=== PATIENT | male | born 1955 | race Caucasian/White ===

== ENCOUNTER 2023-07-24 19:46 | Emergency (ER) | payer MEDICARE, OTHER, SELFPAY ==
[2023-07-24 19:48] VITALS: BP 124/94
--- NOTE | 2023-07-24 20:03 | ED.GENMED ---
History of Present Illness
General
Chief Complaint: Cough
Source: patient
Exam Limitations: none
Time Seen by Provider: 07/24/23 19:52
Travel History
Have you had any contact with someone who has COVID-19?: No
Do you have any symptoms of coronavirus? Fever > 100 degrees, chills, cough, shortness of breath, sore throat, loss of taste or smell, muscle aches, or headache?: No
History of Present Illness
History of Present Illness:
This is a 67 year old male that comes in with c/o fever and cough. States that he is on Bactrim for a UTI. Today he started just not feeling well. Then he started with chills and a cough. States that he has the cough 2 weeks ago and it went away and
came back yesterday. States that his temp at home ws 102. States that he has a slight headache. Denies any chest pain, SOB, abd pain, nausea, vomiting, diarrhea, dizziness, urinary burning.
Past History
Past History
ED Past Medical History: Cancer (bladder and prostate CA), CVA (Mini with no residual), HTN, Hypercholesterolemia and Other (umbilical hernia, Chronic cough, renal calculus)
ED Past Surgical History: Tonsilectomy, Urological (TURP, Prostatectomy) and Other (Hernia repair, abd surgery for Fluid)
Social History
Tobacco: Non-smoker
Alcohol: None
Drug: None
Personal: Single
Living: with family
Employment: Employed
Family History
Family History: Other (Noncontributory)
Review of Systems
Review of Systems
All Other Systems: ROS reviewed and negative except as documented in HPI and ROS
Constitutional: Reports fever and chills
EENT: Reports no symptoms
Respiratory: Reports cough; Denies trouble breathing
Cardiac: Reports no symptoms; Denies chest pain
ABD/GI: Reports no symptoms; Denies abdominal pain, nausea, vomiting or diarrhea
: Reports no symptoms; Denies dysuria, frequency or urgency
Musculoskeletal: Reports no symptoms
Skin: Reports no symptoms
Neurological: Reports headache (Slight); Denies dizzy
Psychiatric: Reports no symptoms
Phy Exam
General Physical Exam
General Presentation: no apparent distress
General age: appears stated age
General Skin: warm and dry
General Habitus: normal
General Mental: alert
General Hydration: dry mucous membranes
ENT Exam
ENT Exam: TM's normal, pharynx normal and neck supple
Eye Exam
Eye Exam: EOMI
Cardiovascular Exam
Cardiovascular Exam: no edema, no murmur, normal peripheral pulses and tachycardia
Pulmonary Exam
Pulmonary Exam: lungs clear, no respiratory distress, no rales, chest non tender, no crackles, no rhonchi, no wheezing and other (Dry cough noted)
Gastrointestinal Exam
Gastrointestinal Exam: normal bowel sounds, non tender, soft, no organomegaly, no pulsatile mass and non distended
Musculoskeletal Exam
Musculoskeletal Exam: full ROM and no edema
Skin Exam
Skin Exam: normal color, warm/dry, no rash and no petechia
Psychiatric Exam
Psychiatric Exam: normal mood/affect
Course
Orders/Labs/Results
Orders:
Orders
07/24/23 20:01
0.9% Sodium Chloride 1000 ml [Nss] 1,000 ml IV BOLUS
Acetaminophen [Tylenol] 1,000 mg PO NOW STA
07/24/23 20:02
CR Chest - 2 Views Urgent
Comment:
Reason For Exam: Fever, cough
07/24/23 20:23
COVID-19 Antigen Urgent
Source: Nasal Swab
Complete Blood Count/With Diff Urgent
Comprehensive Metabolic Panel Urgent
Lactic Acid Urgent
Blood Culture Q30M
RAYMUNDO Source: Blood/Venous
Specimen Description:
Influenza A+B Rapid Molecular Urgent
[email or web address] Source: Nasal Swab
Specimen Description:
07/24/23 20:43
Blood Culture Q30M
RAYMUNDO Source: Blood/Venous
Specimen Description:
07/24/23 21:59
Urinalysis Reflex To Culture Urgent
Date Specimen was Collected: 07/24/23
Time Specimen was Collected: 21:58
Abnormal Lab Results
07/24/23
20:23
RBC 4.51 L 10^6/uL
(4.70-6.10)
Hct 37.2 L %
(39.0-52.0)
Absolute Lymphs (auto) 0.4 L 10^3/uL
(1.2-3.4)
Absolute Monos (auto) 0.9 H 10^3/uL
(0.1-0.6)
Neutrophils % 76.6 H %
(42.2-75.2)
Lymphocytes % 6.0 L %
(20.5-51.1)
Monocytes % 13.2 H %
(1.7-9.3)
Glucose 111 H mg/dl
(70-99)
07/24/23 20:23
07/24/23 20:23
Glucose nonfasting. Lactic acid normal at 0.9, Negative for COVID and Influenza. Urine negative for infection.
Vital Signs
Initial and Last Documented VS:
Initial Vital Signs
Temp Pulse Resp BP Pulse Ox
98.8 F 114 24 124/94 95
07/24/23 19:48 07/24/23 19:48 07/24/23 19:48 07/24/23 19:48 07/24/23 19:48
Last Documented Vital Signs
Temp Pulse Resp BP Pulse Ox
99.6 F 92 28 134/70 95
07/24/23 22:03 07/24/23 21:50 07/24/23 21:50 07/24/23 22:03 07/24/23 20:13
MDM/Problems Addressed
Differential Diagnosis Includes:
COVID, Iinfluenza, UTI, PNA
MDM/Problems Addressed:
This is a 67 year old male that comes in with c/o cough and just not feeling well. States that he is on Bactrim for a UTI. States that yesterday he started with a cough and today he has a fever and just doesn't fell well.
Will get labs. Urine, Given IV fluids, chest X-ray and medicate for his fever.
Back into see patient. Explained that his blood work is normal and his urine is negative for infection. Patient is negative for COVID and Influenza. Explained that blood cultures were obtained and if they would come back positive you will be called
and asked to come back. This may just be a viral illness. Patient to Increase his water intake to 8-8oz glasses daily. Tylenol or Ibuprofen for fever. Follow up with the family doctor. Return with any concerns.
Chronic conditions affecting care:
NA
Acute Exacerbation and/or Progression of Chronic Illness:
Urinary tract infection
*Radiology
Radiology exam reviewed: preliminary read by ED provider (Chest- Negative for active disease. )
*Pulse Oximetry
Patient hypoxic: no
*EKG
Interpreted by ED Provider?: NA
Rate: EKG- N/A
*Lift Truck Mechanic Interpretation
Rate: Lift Truck Mechanic- N/A
*Critical Care Note
Total Time (30-74mins, 75-104mins- exclusive of procedures): Not Applicable
ED Attending Note
-
Portions of this chart may have been created with voice recognition software.� Occasional wrong word or��sound alike� substitutions may have occurred due to the inherent limitations of voice recognition software.
Discharge Plan
Departure
Patient Disposition: Home (Routine Discharge)
Date of Disposition: 07/24/23
Time of Disposition: 23:21
Patient with high blood pressure during this ER visit?: Yes
Condition: Good
Covid-19: Negative COVID-19
Discharge Problem:
Fever, Viral illness
Instructions: Fever, Adult (DC), Viral Syndrome (DC), BLOOD PRESSURE
Prescriptions:
No Action
meclizine 25 MG tablet
25 mg PO Q8HPRN PRN (Reason: nausea or vertigo) Qty: 20 0RF
Vitamin C
1 tab PO DAILY
Vitamin D3
1 tab PO DAILY
atorvastatin 20 mg Tablet
20 mg PO DAILY
psyllium Packet
1 packet PO DAILY
nifedipine 30 mg Tablet Extended Release
30 mg PO DAILY
acetaminophen [Tylenol Extra Strength] 500 mg tablet
1,000 mg PO Q6HPRN PRN (Reason: mild pain) Qty: 1 0RF
naproxen sodium [Aleve] 220 mg capsule
220 - 440 mg PO Q12H PRN (Reason: moderate pain) Qty: 1 0RF
Referrals:
Teresa Corrales CRNP [Family Provider] - Follow up in 2-3 days
Activity Restrictions/Additional Instructions:
As discussed, your blood work is normal along with your chest x-ray. You are negative for COVID and Influenza. Your urine is negative for infection. You have had blood culture drawn and if they would come back positive you will be called. This may
be a viral illness. Please increase your water intake to 8-8oz glasses daily. Tylenol or Ibuprofen for any fever. Follow up with the family doctor in the next 2-3 days for recheck. IF YOU HAVE ANY OTHER CONCERNS PLEASE RETURN TO THE EMERGENCY ROOM.
Interventions
Interventions:
*Risk Screen - Suicide Last Done: 07/24/23 19:48
*General Assessment Last Done: 07/24/23 20:13
*Neglect/Abuse Screening Last Done: 07/24/23 19:48
ED- Fall Risk Assessment Last Done: 07/24/23 20:13
*ED COVID-19 Vaccine History Last Done: 07/24/23 20:13
ED- Neurological Assessment Last Done: 07/24/23 20:13
ED- Pulmonary Assessment Last Done: 07/24/23 20:13
ED-Skin Assessment Last Done: 07/24/23 20:13
Discharge Date and Time
Print Language: AMERICAN
[2023-07-24] MEDS: TYLENOL 1000 MG PO (20:12)
[2023-07-24] MEDS: NSS 1000 IV (20:39)
[2023-07-24 20:44] LABS: % Basophils 0.4 % (0-2); % Eosinophils 3.5 % (0-6); % Immature Granulocytes 0.3 % (0-0.5); % Monocytes 13.2 % (1.7-9.3); % Neutrophils 76.6 % (42.2-75.2); Absolute Eosinophils 0.2 10^3/uL (0-0.7); Absolute Lymphocytes 0.4 10^3/uL (1.2-3.4); Absolute Monocytes 0.9 10^3/uL (0.1-0.6); Absolute Neutrophils 5.3 10^3/uL (1.4-6.5); Hematocrit 37.2 % (39.0-52.0); Hemoglobin 13.2 g/dL (13.0-18.0); Mean Corp Hgb Conc. 35.5 g/dL (33.0-37.0); Mean Corpuscular Hgb 29.3 pg (27.0-31.0); Mean Corpuscular Volume 82.5 fL (80.0-94.0); Mean Platelet Volume 10.1 fL (7.4-10.4); Nucleated Red Blood Cells % 0 % (-); Platelet Count 181 10^3/uL (130-400); Red Blood Cell Count 4.51 10^6/uL (4.70-6.10); Red Cell Dist. Width 14.2 % (11.5-14.5); White Blood Cell Count 6.9 10^3/uL (4.8-10.8)
[2023-07-24 20:57] LABS: Lactic Acid 0.9 mmol/L (0.7-2.0)
[2023-07-24 21:03] LABS: ALT (SGPT) 34 U/L (0-50); AST (SGOT) 28 U/L (17-59); Albumin 4.3 g/dl (3.5-5.0); Alkaline Phosphatase 70 U/L (38-126); Blood Urea Nitrogen 19 mg/dl (9-20); Calcium 9.2 mg/dl (8.4-10.2); Carbon Dioxide 23 mmol/L (22-30); Chloride 104 mmol/L (98-107); Glucose 111 mg/dl (70-99); Potassium 4.2 mmol/L (3.5-5.1); Sodium 136 mmol/L (135-145); Total Bilirubin 0.4 mg/dl (0.2-1.3); Total Protein 6.8 g/dl (6.3-8.2); eGFR > 60.00
[2023-07-24 21:04] LABS: COVID-19 Antigen Negative (Negative)
[2023-07-24 22:03] VITALS: BP 134/70
[2023-07-24 22:15] LABS: Urine Albumin Negative (Neg - Trace); Urine Bilirubin Negative (Negative); Urine Character Clear (Clear); Urine Color Yellow; Urine Glucose Negative (Negative); Urine Ketone Negative (Negative); Urine Leukocyte Negative (Negative); Urine Nitrite Negative (Negative); Urine Occult Blood Negative (Negative); Urine Urobilinogen Negative (Neg - 1+)
[2023-07-24 23:39] VITALS: BP 134/76
[2023-07-24 23:45] VITALS: BP 134/76
== END 2023-07-24 23:45 | disposition home or self-care (01) ==
LOC: EMR 19:46
PROVIDERS: Clinical Nurse Specialist Family Health; EMERGENCY PHYSICIAN Emergency Medicine; FAMILY PHYSICIAN Nurse Practitioner
DX: R05.9 Cough, unspecified (principal); R50.9 Fever, unspecified
CPT/HCPCS: 99284; 96360; 71046; 80053; 81003; 83605; 85025; 87040; 87502; 87811

== ENCOUNTER → 2023-12-25 08:31 | Outpatient (REF) | payer MEDICARE, OTHER, SELFPAY | LOC: DHVS 08:31 | PROVIDERS: ATTENDING PHYSICIAN Surgery Vascular Surgery | DX: I71.40 Abdominal aortic aneurysm, without rupture, unspecified (principal) | CPT/HCPCS: 76770 ==

== ENCOUNTER 2024-08-26 18:04 | Emergency (ER) | payer MEDICARE, OTHER, SELFPAY ==
[2024-08-26 18:11] VITALS: BP 137/81
--- NOTE | 2024-08-26 20:59 | ED.GENMED ---
History of Present Illness
General
Chief Complaint: Skin Problem
Source: patient
Exam Limitations: none
Time Seen by Provider: 08/26/24 20:37
History of Present Illness
History of Present Illness:
See MDM
Past History
Past History
ED Past Medical History: Cancer (bladder and prostate CA), CVA (Mini with no residual), HTN, Hypercholesterolemia and Other (umbilical hernia, Chronic cough, renal calculus)
ED Past Surgical History: Tonsilectomy, Urological (TURP, Prostatectomy) and Other (Hernia repair, abd surgery for Fluid)
Social History
Tobacco: Non-smoker
Alcohol: None
Drug: None
Personal: Single
Living: with family
Employment: Employed
Family History
Family History: Other (Noncontributory)
Phy Exam
Physical Exam
Physical Exam:
See MDM
Course
Orders/Labs/Results
Orders:
Orders
08/26/24 20:54
Sulfamethox./Trimethoprim Ds [Bactrim Ds 800 mg/160 mg] 1 tablet PO NOW STA
Vital Signs
Initial and Last Documented VS:
Initial Vital Signs
Temp Pulse Resp BP Pulse Ox
98.4 F 85 16 137/81 97
08/26/24 18:11 08/26/24 18:11 08/26/24 18:11 08/26/24 18:11 08/26/24 18:11
Last Documented Vital Signs
Temp Pulse Resp BP Pulse Ox
98.4 F 85 16 137/81 97
08/26/24 18:11 08/26/24 18:11 08/26/24 18:11 08/26/24 18:11 08/26/24 21:00
Procedures
Incision/Drainage/Joint Aspiration
Right Distal Radial Fourth Finger:
Anethesia: 1% Lidocaine
Preparation: cleaned with alcohol wipe
Type of procedure: drain
Nature of site: abscess
Description of abscess: greater than 3cm
Loculations broken up: Yes
How much fluid was obtained?: small amount
Fluid description: purulent
MDM/Problems Addressed
Differential Diagnosis Includes:
HPI and MDM Narrative:
69-year-old male presenting with right index finger swelling. He was placed on Keflex a few days ago for an infection. It has significantly grown. Exam consistent with paronychia. Distal finger is neurovascularly intact. After the digital
block, a #11 scalpel was used. Approximately 5 mL of pus was removed and patient felt better. Will add Bactrim on top of the
Physical exam
General: Well appearing and non-toxic
HEENT: protecting airway
Neck: appears supple
CV: No evidence of cyanosis
Resp: No accessory muscle use
Abd: Non-distended
Extremities: Paronychia to right index finger. Pulp is soft.
Neuro: alert
Psych: Normal affect
Skin: Intact
Problems Addressed including Acute and Chronic Conditions affecting care:
1. Paronychia
Acuity: acute
Prognosis: stable
Details: I&D performed. Bactrim added for MRSA coverage
Differential Diagnosis (but not limited to): Paronychia, cellulitis
Testing considered: Finger x-ray
Drug therapy (if applicable): OTC meds, please see d/c instruction regarding Rx drugs
Amount and/or Complexity of Data Reviewed
Clinical info obtained from: Patient
External data reviewed: N/A
Labs I independently reviewed (but not limited to): N/A
Radiology: N/A
Pulse Ox: not hypoxic
EKG independently reviewed: N/A
Junior Network Administrator: N/A
Critical Care: N/A
Risk of Complication:
Social Determinants of health: Good social support
Discussed with other providers: N/A
Escalation of Care includes Admit/Obs: After being observed in the Emergency Department, pt stable for discharge.
Occasional wrong word or 'sound a like' substitutions may have occurred due to the inherent limitations of voice recognition software. Read the chart carefully and recognize, using context, where substitutions have occurred.
*Pulse Oximetry
SaO2: 97
Oxygen Mode of Delivery: Room air
Patient hypoxic: no
*Critical Care Note
Total Time (30-74mins, 75-104mins- exclusive of procedures): Not Applicable
ED Attending Note
-
Portions of this chart may have been created with voice recognition software.� Occasional wrong word or��sound alike� substitutions may have occurred due to the inherent limitations of voice recognition software.
Discharge Plan
Departure
Patient Disposition: Home (Routine Discharge)
Date of Disposition: 08/26/24
Time of Disposition: 20:59
Patient with high blood pressure during this ER visit?: No
Discharge Problem:
Paronychia of finger of right hand
Instructions: Paronychia - ED discharge instructions
Prescriptions:
New
sulfamethoxazole-trimethoprim [Bactrim DS] 800-160 mg tablet
1 tab PO BID 7 Days Qty: 14 0RF
No Action
meclizine 25 MG tablet
25 mg PO Q8HPRN PRN (Reason: nausea or vertigo) Qty: 20 0RF
Vitamin C
1 tab PO DAILY
Vitamin D3
1 tab PO DAILY
atorvastatin 20 mg Tablet
20 mg PO DAILY
psyllium Packet
1 packet PO DAILY
nifedipine 30 mg Tablet Extended Release
30 mg PO DAILY
acetaminophen [Tylenol Extra Strength] 500 mg tablet
1,000 mg PO Q6HPRN PRN (Reason: mild pain) Qty: 1 0RF
naproxen sodium [Aleve] 220 mg capsule
220 - 440 mg PO Q12H PRN (Reason: moderate pain) Qty: 1 0RF
Referrals:
UNKNOWN,PT [Unknown Provider]
Activity Restrictions/Additional Instructions:
Please return for any worsening symptoms.
You may return at any time if you have further concerns.
Please follow up with your doctor at the first available appointment, preferably this week.
Please start taking the newly prescribed Bactrim in addition to the already prescribed cephalexin.
Please soak your finger in mixture of hydroperoxide and warm water for about 15 minutes for a few times a day for the next few days.
Thank you for choosing [facility].
Interventions
Interventions:
*Risk Screen - Suicide Last Done: 08/26/24 18:13
*Neglect/Abuse Screening Last Done: 08/26/24 18:13
*Nursing Disposition Last Done: 08/26/24 21:13
ED-Skin Assessment Last Done: 08/26/24 19:39
Discharge Date and Time
Discharge Date/Time: 08/26/24 21:13
Print Language: UPPER SORBIAN
[2024-08-26] MEDS: BACTRIM DS 800 MG/160 MG 1 TABLET PO (21:08)
== END 2024-08-26 21:13 | disposition home or self-care (01) ==
LOC: EMR 18:04
PROVIDERS: EMERGENCY PHYSICIAN Student in an Organized Health Care Education/Training Program; FAMILY PHYSICIAN Family Medicine
DX: L03.011 Cellulitis of right finger (principal); E78.00 Pure hypercholesterolemia, unspecified; I10 Essential (primary) hypertension; Z85.51 Personal history of malignant neoplasm of bladder; Z86.73 Personal history of transient ischemic attack (TIA), and cerebral infarction without residual deficits
CPT/HCPCS: 10060; 99283

== ENCOUNTER 2024-11-11 06:20 | Day surgery (SDC) | payer MEDICARE, OTHER, SELFPAY | END 2024-11-11 12:57 | disposition home or self-care (01) | LOC: GI 06:20 | PROVIDERS: ATTENDING PHYSICIAN Specialist | DX: Z12.11 Encounter for screening for malignant neoplasm of colon (principal); D12.3 Benign neoplasm of transverse colon; D12.4 Benign neoplasm of descending colon; K63.5 Polyp of colon; K57.30 Diverticulosis of large intestine without perforation or abscess without bleeding; Z86.0101 Personal history of adenomatous and serrated colon polyps | CPT/HCPCS: 45380; 88305 ==

== ENCOUNTER → 2025-01-13 07:55 | Outpatient (REF) | payer MEDICARE, OTHER, SELFPAY | LOC: RAD 07:55 | PROVIDERS: ATTENDING PHYSICIAN Surgery Vascular Surgery; FAMILY PHYSICIAN Nurse Practitioner | DX: I71.40 Abdominal aortic aneurysm, without rupture, unspecified (principal) | CPT/HCPCS: 76770 ==